=== PATIENT | female | born 1960 | race Caucasian/White ===

== ENCOUNTER 2016-08-26 20:13 | Emergency (ER) | payer OTHER ==
--- NOTE | 2016-08-26 20:25 | CPEKG ---
Heart Rate: 94 RR Interval: 638 P-R Interval: 180 QRSD Interval: 76 QT Interval: 372 QTC Interval: 466 P Purcell: 49 QRS Purcell: -38 T Wave Purcell: 68 EKG Severity - OTHERWISE NORMAL ECG - EKG Impression: SINUS RHYTHM EKG Impression: LEFT AXIS DEVIATION Electronically Signed By: Haroon Arana 26-Aug-2016 23:55:54
[2016-08-26] MEDS ORDERED: ONDANSETRON 4 MG/2 ML VIAL IVP ONE (20:34)
[2016-08-26] MEDS ORDERED: LEVALBUTEROL 1.25 MG/3 ML DEYVIAL IH ONE (20:36)
[2016-08-26 20:41] LABS: % IMMATURE GRANULYOCYTES 0.3 % (0.0-1.1); ABSOLUTE IMMATURE GRANULOCYTES 0.02 10^3/uL (0.00-0.10); ADD DIFF? NO; ADD MORPH? NO; ADD SCAN? NO; ATYPICAL LYMPHOCYTE FLAG 0 (0-99); FRAGMENT RBC FLAG 0 (0-99); HEMATOCRIT 29.7 % (38.0-47.0); HEMOGLOBIN 8.8 g/dL (12.6-16.3); LEFT SHIFT FLG 0 (0-99); LIPEMIA HEMOLYSIS FLAG 70 (0-99); MEAN CELL HEMOGLOBIN 21.1 pg (27.9-34.1); MEAN CELL HEMOGLOBIN CONCENTR. 29.6 g/dL (32.4-36.7); MEAN CELL VOLUME 71.1 fL (81.5-99.8); MEAN PLATELET VOLUME 10.1 fL (8.7-11.7); PLATELET CLUMPS FLAG 0 (0-99); PLATELET COUNT 182 10^3/uL (150-400); RED BLOOD CELL COUNT 4.18 10^6/uL (4.18-5.33); RED CELL DISTRIBUTION WIDTH 14.7 % (11.5-15.2)
--- NOTE | 2016-08-26 20:42 | UCPHY ---
H & P Patient Type: New Time Seen by Provider: 08/26/16 20:26 HPI/ROS: This patient explains that she has had a cold with a cough this is a dry hacky cough for 5 days or so and then tonight with a cough she developed abrupt sharp severe chest pain just to the left of midline the feels sharp in nature. This worsens with any coughing. It is mild at baseline. She has some associated subjective fevers and chills. She also complains of myalgias and arthralgias over the same period of time. The abrupt onset of her pain was 1 hour prior to arrival. The patient also describes a pressure in her chest in between the sharp pain since sharp pain started that feels like a squeeze and is mild in intensity. ROS: Mild fatigue. No other constitutional symptoms besides what is noted in HPI. HEENT: Nasal congestion. No sinus pain. No headache. No ear or throat pain. Neuro: No numbness tingling weakness. No confusion. Pulmonary: No pleuritic pain prior to the abrupt onset of this anterior chest pain. No radiation of the pain to her arm or back. She has not had this pain before. Cardiovascular: No heart palpitations. No leg swelling or calf pain. She does have some intermittent diaphoresis. GI: No vomiting or diarrhea. : No symptoms. Endocrine: The patient admits that she has not checked her blood sugar quite some time but she gets a subjective sense of when she has elevated glucose and she has not had that since recently. No polyuria or polydipsia. 10 point ROS is otherwise negative. Source: Patient Exam Limitations: No limitations - Medical/Surgical History PMH: Obesity Depression Xrv-axrseww-jfahnxyug diabetes GERD Anemia Bowel resection 2 years ago for endometriosis that spread to the bowel Severe hemorrhoids - Family History Significant Family History: No pertinent family hx - Social History Smoking Status: Never smoked Alcohol Use: None Drug Use: None - Physical Exam Exam: General Appearance: Alert, moderate distress with grimacing every time she coughs and she class her parasternal region on the left. Eyes: Pupils equal and round no pallor or injection. ENT, Mouth: Mucous membranes moist. Respiratory: Frequent cough. Mild wheeze. No rales are appreciated. Appreciate no asymmetry or breath sounds. The patient has left low rib chest wall tenderness anteriorly that makes her wanes. However she is not sure if this is entirely responsible for her pain. Cardiovascular: Regular rate and rhythm. No murmur gallop or rub. No calf swelling or tenderness. She maintains 2+ symmetric radialis pulses bilaterally Gastrointestinal: Minimal upper epigastric tenderness but this does not reproduce her symptoms. Otherwise soft with no organomegaly. Neurological: Alert with no focal deficits. Skin: Slightly pale and diaphoretic. Musculoskeletal: Neck is supple nontender. Extremities are symmetrical, full range of motion. Psychiatric: Patient is anxious. Otherwise mood and affect are normal DIFFERENTIAL DIAGNOSIS: After history and physical exam differential diagnosis was considered for chest wall injury from coughing, pneumothorax, PE, pneumonia , dissecting thoracic aortic aneurysm, musculoskeletal chest pain, coronary syndrome Constitutional: Initial Vital Signs Temperature (C) 37.1 C 08/26/16 20:15 Heart Rate 96 08/26/16 20:15 Respiratory Rate 24 H 08/26/16 20:15 Blood Pressure 197/111 H 08/26/16 20:15 O2 Sat (%) 94 08/26/16 20:15 O2 Delivery Mode Room Air O2 (L/minute) 2 Allergies/Adverse Reactions: Penicillins Allergy (Verified 08/26/16 21:09) Sulfa (Sulfonamide Antibiotics) Allergy (Verified 08/26/16 21:09) Home Medications: Medication Instructions Recorded Glyburide 08/26/16 Guaifenesin/Codeine Phosphate 5 - 10 ml PO Q6 PRN #120 ml 08/26/16 [Guaifenesin-Codeine Liquid] Lexapro 08/26/16 Metformin HCl 08/26/16 Methocarbamol [Robaxin 750 mg (*)] 750 - 1,500 mg PO QID PRN #30 tab 08/26/16 Medical Decision Making - Diagnostics EKG Interpretation: 12 lead EKG performed shortly after arrival at 8:23 p.m. reveals sinus rhythm at 94 Intervals: Normal throughout [place]: P of 49, QRS of-30, T of 68 ST segments: Normal throughout but question peak Ts anteriorly Overall assessment sinus rhythm with left axis deviation Imaging: Chest x-ray: Normal exception of basilar atelectasis on the left. I discussed this with Dr. Arreaga, radiologist ED Course/Re-evaluation: IV, monitor, morphine 4 mg IV, Toradol 15 mg IV, Valium 5 mg IV with relief of pain down to minimal discomfort Zofran 4 mg IV Xopenex neb with decreased cough, in fact resolution of cough while sitting here. Aspirin 324 A review of her labs reveals a normal D-dimer normal troponin and affect normal white count and differential. Discussion: While this patient presented with seeming severe pain, at rest she only had mild pain noted was just with cough that she had the severe pain. I suspect that she tore an intercostal muscle or cartilage during a vigorous cough. Counseled regarding this. On the lateral chest x-ray there is an area that I think is atelectasis rather than pneumonia given lack of fever or elevation in her white count. Given her prominent coryza and with 3 days symptoms without fever I think that she has a viral bronchitis. I counseled regarding this. Rule out influenza with negative influenza test. Time discharge patient is comfortable. - Data Points Laboratory Results: Laboratory Results 08/26/16 20:30 08/26/16 20:30 Medications Given: Discontinued Medications Albuterol Sulfate (Proventil Inh Prepack) 1 mdi TAKEHOME EDNOW ONE Stop: 08/26/16 22:11 Last Admin: 08/26/16 22:20 Dose: 1 mdi Aspirin (Aspirin) 324 mg PO EDNOW ONE Stop: 08/26/16 20:45 Last Admin: 08/26/16 21:00 Dose: 324 mg Diazepam (Valium Injection) 5 mg IVP EDNOW ONE Stop: 08/26/16 21:15 Last Admin: 08/26/16 21:30 Dose: 5 mg Ketorolac Tromethamine (Toradol) 15 mg IVP EDNOW ONE Stop: 08/26/16 21:21 Last Admin: 08/26/16 21:30 Dose: 15 mg Levalbuterol (Xopenex 1.25mg Neb) 1.25 mg IH EDNOW ONE Stop: 08/26/16 20:37 Last Admin: 08/26/16 20:50 Dose: 1.25 mg Morphine Sulfate (Morphine) 4 mg IVP EDNOW ONE Stop: 08/26/16 20:35 Last Admin: 08/26/16 20:35 Dose: 4 mg Ondansetron HCl (Zofran) 4 mg IVP EDNOW ONE Stop: 08/26/16 20:35 Last Admin: 08/26/16 20:35 Dose: 4 mg Departure - Departure Disposition: Home, Routine, Self-Care Clinical Impression: Chest wall pain, Viral bronchitis Condition: Good Instructions: Acute Bronchitis (ED), Chest Wall Pain (ED) Additional Instructions: Diagnoses: 1. Chest wall pain/injury 2. Viral bronchitis 3. Anemia Plan: Humidifier Albuterol inhaler with spacer for cough, wheeze or shortness of breath Guaifenesin with codeine for cough prevents sleep at night Ibuprofen and Tylenol for pain control Methocarbamol muscle relaxant in addition if needed. Your viral bronchitis should improve over the next 3-10 days. Your chest wall may hurt for 2-4 weeks. However it should steadily improve over time. Continue taking her iron for chronic anemia. Go to the emergency department if he has any significant worsening of her symptoms despite the treatment plan. Follow up primary care physician for any ongoing symptoms despite treatment plan Referrals: Guillermo Chaevz MD [Primary Care Provider] - As per Instructions Prescriptions: Guaifenesin/Codeine Phosphate [Guaifenesin-Codeine Liquid] 5 - 10 ml PO Q6 PRN # 120 ml PRN Reason: Cough Methocarbamol [Robaxin 750 mg (*)] 750 - 1,500 mg PO QID PRN #30 tab PRN Reason: Muscle Spasms - PQRS PQRS Measurement: NA
[2016-08-26] MEDS ORDERED: ASPIRIN 81 MG CHEWABLE TAB PO ONE (20:44)
[2016-08-26 20:57] LABS: ANION GAP 13 mEq/L (8-16); CALCIUM 8.8 mg/dL (8.5-10.4); CARBON DIOXIDE 23 mEq/l (22-31); CHLORIDE 101 mEq/L (97-110); CREATININE 0.7 mg/dL (0.6-1.0); GLOMERULAR FILTRATION RATE > 60; GLUCOSE 157 mg/dL (70-100); POTASSIUM 4.1 mEq/L (3.5-5.2); SODIUM 137 mEq/L (134-144)
[2016-08-26 21:07] LABS: INR 0.95 (0.83-1.16); PROTIME(PATIENT) 12.4 SEC (12.0-15.0)
[2016-08-26 21:08] LABS: APTT 32.7 SEC (23.0-38.0)
[2016-08-26 21:10] LABS: TROPONIN I < 0.012 ng/mL (0-0.034)
[2016-08-26] MEDS ORDERED: DIAZEPAM 10 MG/2 ML SYR IVP ONE (21:14)
[2016-08-26] MEDS ORDERED: KETOROLAC 15 MG/1 ML SDV IVP ONE (21:20)
[2016-08-26 21:37] VITALS: TEMP 98.8
[2016-08-26] MEDS ORDERED: ALBUTEROL INH PREPACK MDI TAKEHOME ONE (22:10)
[2016-08-26 23:08] VITALS: BP 112/69; PULSE 91; RESP 16; O2SAT 95
== END 2016-08-26 22:30 | disposition home or self-care (01) ==
LOC: CED 20:13
DX: J20.8 Acute bronchitis due to other specified organisms (principal); E11.9 Type 2 diabetes mellitus without complications
CPT/HCPCS: 71020-PO; 80048-PO; 84484-PO; 85025-PO; 85378-PO; 85610-PO; 85730-PO; 87400-PO; 93010-PO; 96361-PO; 96374-PO; 96375-PO; 99205-PO; G0463-PO; J1885; J2405